=== PATIENT | male | born 1970 | race Caucasian/White ===

== ENCOUNTER 2017-02-04 17:19 | Emergency (ER) | payer OTHER ==
[~2017-02-04] VITALS: Ht 170.2 cm; Wt 80.9 kg
[2017-02-04 19:46] VITALS: BP 138/89
== END 2017-02-04 19:46 | disposition home or self-care (01) ==
LOC: ED 17:19
DX: S16.1XXA Strain of muscle, fascia and tendon at neck level, initial encounter (principal); S23.3XXA Sprain of ligaments of thoracic spine, initial encounter; S00.81XA Abrasion of other part of head, initial encounter; V43.92XA Unspecified car occupant injured in collision with other type car in traffic accident, initial encounter; Y93.89 Activity, other specified; Y92.89 Other specified places as the place of occurrence of the external cause; Y99.8 Other external cause status

== ENCOUNTER 2017-02-15 22:20 | Emergency (ER) | payer OTHER ==
[~2017-02-15] VITALS: Ht 167.6 cm; Wt 76.2 kg
[2017-02-15 23:04] VITALS: Ht 167.6 cm; Wt 76.2 kg
[2017-02-16 00:29] VITALS: BP 139/85
== END 2017-02-16 01:16 | disposition home or self-care (01) ==
LOC: ED 22:20
DX: S13.4XXA Sprain of ligaments of cervical spine, initial encounter (principal); M54.9 Dorsalgia, unspecified; M25.532 Pain in left wrist; M25.562 Pain in left knee; V89.2XXA Person injured in unspecified motor-vehicle accident, traffic, initial encounter; Y93.89 Activity, other specified; Y92.89 Other specified places as the place of occurrence of the external cause; Y99.8 Other external cause status
CPT/HCPCS: Q0092

== ENCOUNTER 2017-02-20 17:21 | Emergency (ER) | payer OTHER ==
[2017-02-20 18:20] LABS: microscopic required? NO
[2017-02-20 19:13] LABS: UA SPECIFIC GRAVITY 1.015 (1.005-1.035); urine erythrocyte NEGATIVE (NEGATIVE)
[2017-02-20 19:22] LABS: AMPHETAMINE QUAL UR NONE DETECTED (NEG <=1000)
[2017-02-20 21:27] VITALS: BP 156/98
== END 2017-02-20 21:27 | disposition home or self-care (01) ==
LOC: ED 17:21
PROVIDERS: Emergency Medicine
DX: N45.2 Orchitis (principal); I86.1 Scrotal varices
CPT/HCPCS: 36415; 87491; 87591; Q0092

== ENCOUNTER 2017-03-08 04:21 | Emergency (ER) | payer OTHER ==
[~2017-03-08] VITALS: Ht 170.2 cm; Wt 82.5 kg
[2017-03-08 04:44] VITALS: Ht 170.2 cm; Wt 82.5 kg
[2017-03-08 07:26] VITALS: BP 131/78
== END 2017-03-08 07:26 | disposition home or self-care (01) ==
LOC: ED 04:21
DX: M54.5 Low back pain (principal); R30.0 Dysuria
CPT/HCPCS: 72072